=== PATIENT | male | born 1955 | race Caucasian/White ===

== ENCOUNTER 2017-03-04 03:14 | Observation (INO) | payer OTHER ==
[2017-03-04] MEDS ORDERED: BABY ASPIRIN 81 MG CHEW PO ONE (03:20)
[2017-03-04] MEDS ORDERED: Ntg 0.2MG/Ml in D5W GLASS*** 250 ML IV PRN (03:20)
[2017-03-04] MEDS ORDERED: SUBLIMAZE 100 MCG/2 ML IV ONE ×2 (03:20→05:22)
[2017-03-04] MEDS ORDERED: BABY ASPIRIN 81 MG CHEW ONE (03:23)
[2017-03-04] MEDS ORDERED: SUBLIMAZE 100 MCG/2 ML ONE ×2 (03:24→05:24)
[2017-03-04 03:29] LABS: BASOPHIL % 0.2 % (0.0-0.4); Eosinophil % 5.6 % (0.00-5.0); Granulocytes % 47.1 % (36.0-66.0); Lymphocytes % 38.2 % (24.0-44.0); Mean Cell Volume 92.7 fl (78-100); Mean Corpuscular Hemoglobin 31.2 pg (26-32); Mean Platelet Volume 10.5 fl (6-9.5); Monocytes % 8.9 % (0.0-12.0); Platelet Count 222 K/mm3 (150-450); Red Blood Count 4.93 M/mm3 (4.1-5.6); Red Cell Distribution Width 13.8 % (11.5-14.0)
[2017-03-04] MEDS ORDERED: Sodium Chloride 0.9% 1000 ML 1,000 ML IV SCH (03:30)
[2017-03-04 03:41] LABS: INR 0.94 (0.8-3.0); PROTIME 10.5 SECONDS (8.83-12.87)
[2017-03-04 03:44] LABS: PTT 32.6 SECONDS (24.1-36.1)
[2017-03-04 03:56] LABS: ALBUMIN 3.6 g/dL (3.4-5.0); ALKALINE PHOSPHATASE 142 U/L (46-116); ANION GAP 13.2 MEQ/L (5-15); BLOOD UREA NITROGEN 14 mg/dL (9-20); CHLORIDE 108 mEq/L (98-107); Carbon Dioxide 26.6 mEq/L (21-32); Glucose 114 MG/DL (70-110); SGOT/AST 12 U/L (15-37); SGPT/ALT 22 U/L (12-78); SODIUM 144 mEq/L (136-145); Total Protein 7.3 gm/dL (6.4-8.2)
--- NOTE | 2017-03-04 04:07 | ERPHSYRPT ---
- History of Present Illness Time Seen by Provider: 03/04/17 03:20 Historian: patient, family () Patient Subjective Stated Complaint: PT STATES APPROX MIDNIGHT THIS NIGHT HE WOKE UP FROM SLEEP WITH STABBING CHEST PAIN THAT WENT THROUGH TO HIS BACK AND UP HIS LEFT JAW. STATES HE TOOK 2 NITRO WITH NO RELIEF. PT C/O OF SHORTNESS OF BREATH AT THE TIME OF FIRST PAINS BUT BREATHING EASIER NOW. Triage Nursing Assessment: PT IS AOX3, AMBULATORY TO COT WITH NO DIFFICULTIES, RESPS ARE EASY AND NON LABORED, RADIAL PULSES ARE STRONG AND EQUAL. HEART SOUNDS REGULAR, CAP REFILL <3 SECONDS. NO EDEMA APPRECIATED. Physician History: CC: chest pain hx: 61 [facility] patient with hx of DM, heart disease, and prior stroke. He awoke around MN with chest pain to his jaw. He took 2 NTG with mild relief. Not short of breath. Prior [place]. He has been seeing urology for hematuria. Pain sharp and severe. Timing/Duration: today ([place]) Nitro Today/Relief: 0.4 mg x 2, provided at home Aspirin Treatment Today: 81 mg x 4, provided by ED Allergies/Adverse Reactions: STEROIDS Allergy (Mild, Uncoded 03/04/17 03:42) Home Medications: Clopidogrel Bisulfate 75 mg [PLAVIX 75 MG Tablet] 1 tab PO DAILY 11/06/15 [History] Hydrocodone/Acetaminophen [Vicodin Es 7.5-300 mg Tablet] 1 tab PO Q8HPRN PRN [History] Lisinopril 10 mg [Zestril 10 MG] 1 tab PO BID 11/06/15 [History] Metformin HCl 500 mg [Glucophage 500 MG] 1 tab PO DAILY 11/06/15 [History] Metoprolol Tartrate 1 tab PO BID 11/06/15 [History] PANTOPRAZOLE 40 mg Tablet [Protonix 40MG Tablet] 1 tab PO DAILY 11/06/15 [ History] Aspirin 81 gm Chew [Baby Aspirin 81 mg Chew] 81 mg PO DAILY 03/04/17 [ History] Atorvastatin Calcium [Lipitor] 40 mg PO DAILY 03/04/17 [History] Hx Tetanus, Diphtheria Vaccination/Date Given: Yes Hx Influenza Vaccination/Date Given: No Hx Pneumococcal Vaccination/Date Given: No Immunizations Up to Date: Yes - Review of Systems Constitutional: No Fever, No Chills Eyes: No Symptoms Ears, Nose, & Throat: No Symptoms Respiratory: No Cough, No Dyspnea Cardiac: Chest Pain, No Edema, No Syncope Abdominal/Gastrointestinal: No Abdominal Pain, No Nausea, No Vomiting, No Diarrhea Genitourinary Symptoms: No Dysuria Skin: No Rash Neurological: No Headache All Other Systems: Reviewed and Negative - Past Medical History Pertinent Past Medical History: Yes Neurological History: Stroke Cardiac History: Hypertension, Myocardial Infarction ([place]) Endocrine Medical History: Diabetes Type II Musculoskeletal History: Arthritis 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 - Past Surgical History Past Surgical History: Yes Cardiac: Cardiac Stent - Social History Smoking Status: Current every day smoker How long have you smoked: YRS Exposure to second hand smoke: Yes Drug Use: none Patient Lives Alone: No ( here with ) - Nursing Vital Signs Nursing Vital Signs: Initial Vital Signs Temperature 98.3 F 03/04/17 03:24 Pulse Rate 91 H 03/04/17 03:24 Respiratory Rate 20 03/04/17 03:24 Blood Pressure 136/91 03/04/17 03:24 O2 Sat by Pulse Oximetry 95 03/04/17 03:24 Pain Scale Pain Intensity 6 - Physical Exam General Appearance: alert Eye Exam: PERRL/EOMI Ears, Nose, Throat Exam: normal ENT inspection, moist mucous membranes Neck Exam: normal inspection, non-tender, supple Respiratory Exam: normal breath sounds, lungs clear Cardiovascular Exam: regular rate/rhythm, No murmur Gastrointestinal/Abdomen Exam: soft, No tenderness, No distention, No mass, No guarding Male Genitalia Exam: normal genitalia Back Exam: normal inspection Extremity Exam: normal inspection, normal range of motion Neurologic Exam: alert, oriented x 3, cooperative, sensation nml, No motor deficits Skin Exam: warm, dry, pale, No rash SpO2 Interpretation: normal SpO2: 93 Oxygen Delivery: Room Air - Course Nursing assessment & vital signs reviewed: Yes EKG Interpreted by Me: RATE (96), Sinus Rhythm, NORMAL AXIS, NORMAL INTERVALS ( QTc 428), Non-specific ST Changes, Other (minimal inferior ST changes present on prior tracing) - Radiology Exams cxr X-ray Interpretation: Reviewed by me, Negative (mild CM) Ordered Tests: Active Orders 24 hr Category Date Time Status Clean Catch Urine Specimen STAT Care 03/04/17 04:01 Active EKG-ER Only STAT Care 03/04/17 03:20 Active EKG-ER Only STAT Care 03/04/17 03:22 Active EKG-ER Only STAT Care 03/04/17 04:16 Active IV Insertion STAT Care 03/04/17 03:20 Active IV Insertion-2nd Peripheral STAT Care 03/04/17 03:21 Active Oxygen-ED Only NASAL CANNULA 2 lpm Care 03/04/17 04:17 Active Pulse Oximetry (ED) STAT Care 03/04/17 03:20 Active CHEST 1 VIEW (PORTABLE) Stat Exams 03/04/17 03:20 Taken CBC W DIFF Stat Lab 03/04/17 03:24 Completed CMP Stat Lab 03/04/17 03:24 Completed NT PRO BNP Stat Lab 03/04/17 03:24 Completed PROTIME WITH INR Stat Lab 03/04/17 03:24 Completed PTT Stat Lab 03/04/17 03:24 Completed TROPONIN Q3H Lab 03/04/17 03:24 Completed TROPONIN Q3H Lab 03/04/17 06:30 Ordered TROPONIN Q3H Lab 03/04/17 09:30 Ordered TROPONIN Q3H Lab 03/04/17 12:30 Ordered TROPONIN Q3H Lab 03/04/17 15:30 Ordered UA W/ MICROSCOPIC Stat Lab 03/04/17 04:01 Completed Medication Summary Generic Name Dose Route Start Last Admin Trade Name Freq PRN Reason Stop Dose Admin Nitroglycerin/Dextrose 250 mls @ 1.5 mls/hr 03/04/17 03:20 Ntg 0.2mg/Ml In D5w Glass IV 04/03/17 03:19 .Q24H PRN CHEST PAIN Protocol 5 MCG/MIN Sodium Chloride 1,000 mls @ 50 mls/hr 03/04/17 03:30 03/04/17 03:32 Sodium Chloride 0.9% 1000 Ml IV 04/03/17 03:29 50 mls/hr .Q20H ADI Administration Discontinued Medications Generic Name Dose Route Start Last Admin Trade Name Freq PRN Reason Stop Dose Admin Aspirin 324 mg 03/04/17 03:20 03/04/17 03:32 Baby Aspirin 81 Mg Chew PO 03/04/17 03:21 324 mg STAT ONE Administration Aspirin Confirm 03/04/17 03:23 Baby Aspirin 81 Mg Chew Administered 03/04/17 03:24 Dose 324 mg .ROUTE .STK-MED ONE Fentanyl Citrate 50 mcg 03/04/17 03:20 03/04/17 03:32 Sublimaze 100 Mcg/2 Ml IV 03/04/17 03:21 50 mcg STAT ONE Administration Fentanyl Citrate Confirm 03/04/17 03:24 Sublimaze 100 Mcg/2 Ml Administered 03/04/17 03:25 Dose 100 mcg .ROUTE .STK-MED ONE Lab/Rad Data: Laboratory Result Diagrams 03/04/17 03:24 03/04/17 03:24 Laboratory Results 03/04/17 03/04/17 03/04/17 Range/Units 04:01 03:24 03:24 WBC (4.0-10.5) K/mm3 RBC (4.1-5.6) M/mm3 Hgb (12.5-18.0) gm/dl Hct (42-50) % MCV (78-100) fl MCH (26-32) pg MCHC (32-36) g/dl RDW (11.5-14.0) % Plt Count (150-450) K/mm3 MPV (6-9.5) fl Gran % (36.0-66.0) % Lymphocytes % (24.0-44.0) % Monocytes % (0.0-12.0) % Eosinophils % (0.00-5.0) % Basophils % (0.0-0.4) % Basophils # (0-0.4) INR 0.94 (0.8-3.0) APTT 32.6 (24.1-36.1) SECONDS Sodium (136-145) mEq/L Potassium (3.5-5.1) mEq/L Chloride (98-107) mEq/L Carbon Dioxide (21-32) mEq/L Anion Gap (5-15) MEQ/L BUN (9-20) mg/dL Creatinine (0.55-1.30) mg/dl Estimated GFR ML/MIN Glucose (70-110) MG/DL Calcium (8.5-10.1) mg/dL Total Bilirubin (0.2-1.0) mg/dL AST (15-37) U/L ALT (12-78) U/L Alkaline Phosphatase (46-116) U/L Troponin I < 0.017 (0.000-0.056) ng/ml NT-Pro-B Natriuret Pep (0-125) pg/ml Serum Total Protein (6.4-8.2) gm/dL Albumin (3.4-5.0) g/dL Ur Collection Type CLEAN CATCH Urine Color YELLOW (YELLOW) Urine Appearance CLEAR (CLEAR) Urine pH 5.0 (5-6) Ur Specific [place] 1.020 (1.005-1.025) Urine Protein NEGATIVE (Negative) Urine Ketones NEGATIVE (NEGATIVE) Urine Blood 50 (0-5) Manny/ul Urine Nitrite NEGATIVE (NEGATIVE) Urine Bilirubin NEGATIVE (NEGATIVE) Urine Urobilinogen NORMAL (0-1) mg/dL Ur Leukocyte Esterase NEGATIVE (NEGATIVE) Urine Microscopic RBC 0-2 (0-2) /HPF Ur Epithelial Cells FEW (FEW) /HPF Urine Glucose NEGATIVE (NEGATIVE) mg/dL Specimen Received 03/04/17:0400 03/04/17 03/04/17 Range/Units 03:24 03:24 WBC 9.0 (4.0-10.5) K/mm3 RBC 4.93 (4.1-5.6) M/mm3 Hgb 15.4 (12.5-18.0) gm/dl Hct 45.7 (42-50) % MCV 92.7 (78-100) fl MCH 31.2 (26-32) pg MCHC 33.7 (32-36) g/dl RDW 13.8 (11.5-14.0) % Plt Count 222 (150-450) K/mm3 MPV 10.5 H (6-9.5) fl Gran % 47.1 (36.0-66.0) % Lymphocytes % 38.2 (24.0-44.0) % Monocytes % 8.9 (0.0-12.0) % Eosinophils % 5.6 H (0.00-5.0) % Basophils % 0.2 (0.0-0.4) % Basophils # 0.02 (0-0.4) INR (0.8-3.0) APTT (24.1-36.1) SECONDS Sodium 144 (136-145) mEq/L Potassium 4.0 (3.5-5.1) mEq/L Chloride 108 H (98-107) mEq/L Carbon Dioxide 26.6 (21-32) mEq/L Anion Gap 13.2 (5-15) MEQ/L BUN 14 (9-20) mg/dL Creatinine 1.07 (0.55-1.30) mg/dl Estimated GFR > 60 ML/MIN Glucose 114 H (70-110) MG/DL Calcium 8.7 (8.5-10.1) mg/dL Total Bilirubin 0.20 (0.2-1.0) mg/dL AST 12 L (15-37) U/L ALT 22 (12-78) U/L Alkaline Phosphatase 142 H (46-116) U/L Troponin I (0.000-0.056) ng/ml NT-Pro-B Natriuret Pep 35 (0-125) pg/ml Serum Total Protein 7.3 (6.4-8.2) gm/dL Albumin 3.6 (3.4-5.0) g/dL Ur Collection Type Urine Color (YELLOW) Urine Appearance (CLEAR) Urine pH (5-6) Ur Specific [place] (1.005-1.025) Urine Protein (Negative) Urine Ketones (NEGATIVE) Urine Blood (0-5) Manny/ul Urine Nitrite (NEGATIVE) Urine Bilirubin (NEGATIVE) Urine Urobilinogen (0-1) mg/dL Ur Leukocyte Esterase (NEGATIVE) Urine Microscopic RBC (0-2) /HPF Ur Epithelial Cells (FEW) /HPF Urine Glucose (NEGATIVE) mg/dL Specimen Received - Progress Progress Note: 03/04/17 04:06 ASA and fentanyl given. IV NTG started. Pain improving. BP adequate but low side. 03/04/17 05:03 Pain down to 2/10. He is on 50 andrey IV NTG gtt. Called [facility] and spoke to [employer] Specialist Jamie. No PCU beds at [facility] so Dr Angelito Mendenhall gave approval for care in [place] or [place]. Patient has seen Dr Lindsay in the past. Called Dr Ajay Smith for [facility] and he advised admit at [place]. CAlled Dr Tejada (oc) and will admit to ICU on NTG gtt. UA neg for blood so will give lovenox as well. Explained rule out [place] protocol to pt and family. Counseled pt/family regarding: lab results, diagnosis, need for follow-up, rad results - Departure Time of Disposition: 05:05 Departure Disposition: Observation (CCU) Clinical Impression: Chest pain, rule out acute myocardial infarction, Unstable angina Condition: Fair Critical Care Time: Yes Critical Care Time(excluding separately billable procedures): 30-74 minutes Referrals: HOSPITAL,'S [Primary Care Provider] -
[2017-03-04 04:18] LABS: ADD URINE CULTURE? NO (NO); Bilirubin NEGATIVE (NEGATIVE); Blood 50 Ery/ul (0-5); COMPLETE URINE MICROSCOPIC? YES; Collection Type CLEAN CATCH; Glucose NEGATIVE (NEGATIVE); Leukocyte Esterase NEGATIVE (NEGATIVE)
[2017-03-04 04:19] LABS: Epithelial Cells FEW /HPF (FEW)
[2017-03-04] MEDS ORDERED: Pepcid 20 MG VIAL IV ONE ×2 (05:08→05:13)
[2017-03-04] MEDS ORDERED: ENOXAPARIN SODIUM SQ SCH (05:15)
[2017-03-04] MEDS ORDERED: TYLENOL 325 MG PO PRN (06:52)
[2017-03-04] MEDS ORDERED: Zofran 4 MG/2 ML VIAL IV PRN (06:52)
[2017-03-04] MEDS ORDERED: MAALOX ES 30 ML UNIT DOSE PO PRN (06:52)
[2017-03-04] MEDS ORDERED: NovoLOG Insulin SQ PRN (06:52)
[2017-03-04] MEDS ORDERED: Senokot-S Tablet PO PRN (06:52)
[2017-03-04] MEDS ORDERED: MILK OF MAGNESIA 30 ML PO PRN (06:52)
[2017-03-04] MEDS ORDERED: MORPHINE SULFATE 4 MG INJ IV ONE (08:04)
[2017-03-04] MEDS ORDERED: MORPHINE SULFATE 4 MG INJ IV PRN (08:15)
[2017-03-04] MEDS ORDERED: LOPRESSOR 5 MG/5 ML INJECTION IV ONE (08:16)
[2017-03-04 08:27] VITALS: BP 111/84; O2SAT 94
[2017-03-04 08:49] VITALS: PULSE 90
--- NOTE | 2017-03-04 08:56 | XRAY ---
Indication: Chest pain. Comparison: November 06, 2015. Portable chest less inflated today and again clear with a few incidental calcified granulomas. Heart is not enlarged. Bony thorax intact again with mild degenerative changes and old right clavicle fracture. Impression: Nonacute chest with chronic features.
--- NOTE | 2017-03-04 10:33 | HP ---
HISTORY OF PRESENT ILLNESS: This is a 61 year-old patient of the PA who presented to the emergency department last night. The patient reports that he started to have sternal chest pain that radiated up into his jaw mostly in the left side, back of his throat and through to his back. He went to bed at 2200 hours last night and the chest pain started at midnight. He waited until 0300 hours and then woke up his and told her he needed to come to the emergency department. He tried [id number] medications for acid reflux without help. He reports coronary artery disease with myocardial infarction five [address] Lindsay put a stent in for him. He reports an episode of chest pain one year ago which he got sent to the [facility] for and he sees a [place] health and safety inspector every year. He reports he had a stress test last year but was not sure of the results. The patient reports an episode a year ago. He had to be on a morphine drip. He states the pain is in his sternum up to his neck and to his back more on the left side of his neck, back of his throat. He states it hurts to draw in a breath of air. He denies any nausea or vomiting with it. He reports the Nitro drip is not helping with the pain but the pain medicine they gave in the emergency room did help. The nurses report the emergency room doctor did not order any further pain medication for him when they admitted him even though that is usually on the chest pain pathway. REVIEW OF SYSTEMS: No cough. No fever. No abdominal pain. No constipation. No diarrhea. Otherwise review of systems is negative. 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 PAST SURGICAL HISTORY: Stent placement has been his only surgery. MEDICATIONS: Aspirin 81 mg p.o. daily, atorvastatin 40 mg p.o. daily, Plavix 75 mg p.o. daily, Vicodin 7.5/300 one tablet p.o. every 8 hours PRN for arthritis, lisinopril 10 mg p.o. b.i.d., Metformin 500 mg daily, Metoprolol tartrate unknown dose 1 tablet p.o. b.i.d., pantoprazole 40 mg p.o. daily. ALLERGIES: STEROIDS. SOCIAL HISTORY: He continues to smoke one pack per day. He occasionally uses alcohol. He denies any history of alcohol withdrawal. He is disabled. 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 He is and lives at home with this . FAMILY HISTORY: His father is and from respiratory failure but also did have coronary artery disease. His mother from old age. PHYSICAL EXAMINATION: VITAL SIGNS: Temperature current 98.1F, temperature max 98.3F, heart rate 89 to 99, respiratory rate 19 to 20, blood pressure 98 to 136 over 60 to 91. Oxygen saturation 93 to 97% on room air with 2 liters nasal cannula. GENERAL: The patient is lying in bed complaining of chest pain. Family members at the bedside. CVS: He has a regular rate and rhythm. No murmurs, gallops or rubs are appreciated. CHEST: Clear to auscultation bilaterally. No crackles or wheezes. ABDOMEN: Soft, nontender, nondistended with normal bowel sounds. EXTREMITIES: No clubbing, cyanosis or edema. SKIN: Warm, dry and intact. LABORATORY DATA AND TESTS: He has had two negative troponins. CBC within normal limits. CMP revealed glucose 114, alkaline phosphatase 142. UA negative. Chest x-ray has not been read by the radiologist yet. EKG this a.m. is sinus rhythm with heart rate of 85 with T-wave flattening in aVL and lead III. ASSESSMENT AND PLAN: 1) CHEST PAIN WITH HISTORY OF CORONARY ARTERY DISEASE: Dr. Taylor consulted Dr. Haven Hudson from the emergency room who recommended that he be admitted here and Dr. Lindsay consulted in the morning. He was started on Nitro drip in the emergency room and according to Dr. Taylor also received a dose of Lovenox. The patient continues to have chest pain. I have ordered morphine as needed for pain. He is on oxygen. I have reordered aspirin and Plavix as well. I have ordered metoprolol 5 mg IV x1 to try to slow down his heart rate. I will await further cardiology consultation. I am also going to check a D-dimer to rule out pulmonary embolism. He received anticoagulation dose of Lovenox. 2) HYPERTENSION: His blood pressure is currently under control. 3) HISTORY OF STROKE: He is stable. 4) DIABETES MELLITUS TYPE 2: Will continue with a low dose sliding scale of NovoLog and hold the Metformin at this time.
[2017-03-04] MEDS ORDERED: Pepcid 20 MG VIAL IV SCH (22:00)
[2017-03-05] MEDS ORDERED: Ecotrin 325 MG PO SCH (10:00)
== END 2017-03-04 11:05 | disposition short-term general hospital (02) ==
LOC: ED 03:14 → ICU 06:16
PROVIDERS: ADMIT Internal Medicine; ATTEND Internal Medicine
DX: R07.9 Chest pain, unspecified (principal); I10 Essential (primary) hypertension; E11.9 Type 2 diabetes mellitus without complications; I25.2 Old myocardial infarction; Z86.79 Personal history of other diseases of the circulatory system; Z86.73 Personal history of transient ischemic attack (TIA), and cerebral infarction without residual deficits
CPT/HCPCS: 36000; 36415; 71010; 80053; 80061; 81000; 82150; 83690; 83721; 83880; 84484; 85025; 85379; 85610; 85730; 93005; 96360; 96361; 96374; 99285; G0378; J1650; J2270; J3010; A9270-GY

== ENCOUNTER 2021-01-16 17:46 | Emergency (ER) | payer OTHER ==
[2021-01-16 18:18] LABS: Absolute Neutrophil Ct (ANC) 3.41 (1.4-6.9); BASOPHIL % 0.3 % (0.0-0.4); Basophil (Absolute #) 0.02 (0-0.4); Eosinophil % 2.7 % (0.00-5.0); Eosinophil (Absolute #) 0.21 (0-0.5); Hematocrit 46.5 % (42-50); Hemoglobin 15.3 gm/dl (12.5-18.0); Lymphocyte (Absolute #) 3.31 (1.0-4.6); Mean Cell Volume 96.1 fl (78-100); Mean Corpuscular Hemoglobin 31.6 pg (26-32); Mean Corpuscular Hgb Concent. 32.9 g/dl (32-36); Monocyte (Absolute #) 0.75 (0.0-1.3); Monocytes % 9.7 % (0.0-12.0); Neutrophil % 44.3 % (36.0-66.0); Platelet Count 207 K/mm3 (150-450); Red Blood Count 4.84 M/mm3 (4.1-5.6); Red Cell Distribution Width 13.6 % (11.5-14.0); White Blood Count 7.7 K/mm3 (4.0-10.5)
[2021-01-16 18:24] LABS: ALBUMIN 4.4 g/dL (3.5-5.0); ALKALINE PHOSPHATASE 163 U/L (38-126); ANION GAP 15.5 MEQ/L (5-15); BLOOD UREA NITROGEN 14 mg/dL (9-20); CHLORIDE 102 mmol/L (98-107); Calcium 9.4 mg/dL (8.4-10.2); Carbon Dioxide 24 mmol/L (22-30); EST GLOMERULAR FILTRATION RATE > 60.0 ML/MIN; Glucose 134 mg/dL (74-106); Potassium 3.7 mmol/L (3.5-5.1); SGOT/AST 33 U/L (17-59); SGPT/ALT 26 U/L (0-50); SODIUM 138 mmol/L (137-145); Total Protein 7.7 g/dL (6.3-8.2)
--- NOTE | 2021-01-16 19:03 | ERPHSYRPT ---
- History of Present Illness Time Seen by Provider: 01/16/21 18:00 Source: patient Patient Subjective Stated Complaint: BP CUFF AT HOME READS OVER 200. TOOK 81 MG ASA. DIZZINESS, HEADACHE. WANTS BP CHECKED TO SEE IF MONITOR IS WORKING. Triage Nursing Assessment: ALERT AND ORIENTED. SKIN FLUSHED, WARM, DRY. Physician History: Patient is a 65-year-old male presents to emergency department for evaluation of blood pressure. Patient checked his blood pressure at home. Blood pressure was elevated. Patient states systolic was greater than 200. Patient took aspirin at home prior to arrival. He feels slightly dizzy. No other complaints. No c hest pain. No shortness of breath. No nausea vomiting or diaphoresis. Symptoms are mild in intensity. No specific worsening or improving factors. Patient voices no other complaints or concerns at this time. Timing/Duration: today Severity: mild Modifying Factors: Improves With: nothing Associated Symptoms: denies symptoms Allergies/Adverse Reactions: STEROIDS Allergy (Mild, Uncoded 03/04/17 06:56) Home Medications: Clopidogrel Bisulfate 75 mg [PLAVIX 75 MG Tablet] 1 tab PO DAILY 11/06/15 [History] Hydrocodone/Acetaminophen [Vicodin Es 7.5-300 mg Tablet] 1 tab PO Q8HPRN PRN 11/06/15 [History] Lisinopril 10 mg [Zestril 10 MG] 1 tab PO BID 11/06/15 [History] Metformin HCl 500 mg [Glucophage 500 MG] 1 tab PO DAILY 11/06/15 [History] Metoprolol Tartrate 1 tab PO BID 11/06/15 [History] PANTOPRAZOLE 40 mg Tablet [Protonix 40MG Tablet] 1 tab PO DAILY 11/06/15 [History] Aspirin 81 gm Chew [Baby Aspirin 81 mg Chew] 81 mg PO DAILY 03/04/17 [History] Atorvastatin Calcium [Lipitor] 40 mg PO DAILY 03/04/17 [History] Hx Tetanus, Diphtheria Vaccination/Date Given: Yes Hx Influenza Vaccination/Date Given: No Hx Pneumococcal Vaccination/Date Given: No Travel Risk - International Travel Have you traveled outside of the country in past 3 weeks: No - Coronavirus Screening Are you exhibiting any of the following symptoms?: No Close contact with a COVID-19 positive Pt in past 14-21 Days: No - Vaccine Status Have you recieved a Covid-19 vaccination: Yes 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 - Vaccination Dates Date of 2cond Vaccination (if applicable): 11/05/20 - Review of Systems Constitutional: No Symptoms, No Fever, No Chills Eyes: No Symptoms Ears, Nose, & Throat: No Symptoms Respiratory: No Symptoms, No Cough, No Dyspnea Cardiac: No Symptoms, No Chest Pain, No Edema, No Syncope Abdominal/Gastrointestinal: No Symptoms, No Abdominal Pain, No Nausea, No Vomiting, No Diarrhea Genitourinary Symptoms: No Symptoms, No Dysuria Musculoskeletal: No Symptoms, No Back Pain, No Neck Pain Skin: No Symptoms, No Rash Neurological: No Symptoms, No Dizziness, No Focal Weakness, No Sensory Changes Psychological: No Symptoms Endocrine: No Symptoms Hematologic/Lymphatic: No Symptoms Immunological/Allergic: No Symptoms All Other Systems: Reviewed and Negative - Past Medical History Pertinent Past Medical History: Yes Neurological History: Stroke Cardiac History: Angina, Coronary Artery Disease, High Cholesterol, Hypertension, Myocardial Infarction ([place]) Respiratory History: No Pertinent History, Sleep Apnea Endocrine Medical History: Diabetes Type II Musculoskeletal History: Arthritis GI Medical History: GERD History: No Pertinent History Psycho-Social History: No Pertinent History Male Reproductive Disorders: No Pertinent History 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 - Social History Smoking Status: Current every day smoker How long have you smoked: YRS Exposure to second hand smoke: Yes Drug Use: none Patient Lives Alone: No ( here with ) - Nursing Vital Signs Nursing Vital Signs: Initial Vital Signs Temperature 98.0 F 01/16/21 17:57 Pulse Rate 97 H 01/16/21 17:57 Respiratory Rate 20 01/16/21 17:57 Blood Pressure 222/131 01/16/21 17:57 O2 Sat by Pulse Oximetry 98 01/16/21 17:57 Pain Scale Pain Intensity 0 - Physical Exam General Appearance: no apparent distress, alert Eye Exam: PERRL/EOMI, eyes nml inspection Ears, Nose, Throat Exam: normal ENT inspection, TMs normal, pharynx normal, moist mucous membranes Neck Exam: normal inspection, non-tender, supple, full range of motion Respiratory Exam: normal breath sounds, lungs clear, No respiratory distress Cardiovascular Exam: regular rate/rhythm, normal heart sounds, normal peripheral pulses Gastrointestinal/Abdomen Exam: soft, normal bowel sounds, No tenderness, No mass Back Exam: normal inspection, normal range of motion, No CVA tenderness, No vertebral tenderness Extremity Exam: normal inspection, normal range of motion, pelvis stable Neurologic Exam: alert, oriented x 3, cooperative, normal mood/affect, sensation nml, No motor deficits Skin Exam: normal color, warm, dry, No rash Lymphatic Exam: No adenopathy SpO2 Interpretation: normal SpO2: 97 O2 Delivery: Room Air - Course Nursing assessment & vital signs reviewed: Yes EKG Interpreted by Me: RATE (95), Sinus Rhythm, NORMAL AXIS, NORMAL INTERVALS - Radiology Exams Chest X-ray Interpretation: Interpreted by me (2. Previous x-ray dated 03/04/2017. Normal cardiac silhouette. Intact bony thorax. No acute cardiopulmonary process old right clavicle fracture. Nonacute chest with chronic features) Ordered Tests: Active Orders 24 hr Category Date Time Status [employer]orer STAT Care 01/16/21 18:11 Active EKG-ER Only STAT Care 01/16/21 18:09 Active IV Insertion STAT Care 01/16/21 18:09 Active Pulse Oximetry (ED) STAT Care 01/16/21 18:09 Active CHEST 1 VIEW (PORTABLE) Stat Exams 01/16/21 18:11 Taken CBC W DIFF Stat Lab 01/16/21 18:00 Completed CMP Stat Lab 01/16/21 18:00 Completed TROPONIN Q3H Lab 01/16/21 18:00 Completed TROPONIN Q3H Lab 01/16/21 20:29 Completed TROPONIN Q3H Lab 01/17/21 00:15 Ordered TROPONIN Q3H Lab 01/17/21 03:15 Ordered TROPONIN Q3H Lab 01/17/21 06:15 Ordered UA W/RFX UR CULTURE Stat Lab 01/16/21 18:33 Completed Medication Summary Discontinued Medications Generic Name Dose Route Start Last Admin Trade Name Freq PRN Reason Stop Dose Admin Amlodipine Besylate 5 mg 01/16/21 20:35 01/16/21 20:58 Norvasc 5 Mg PO 01/16/21 20:36 5 mg STAT ONE Administration Amlodipine Besylate Confirm 01/16/21 20:57 Norvasc 5 Mg Administered 01/16/21 20:58 Dose 5 mg .ROUTE .STK-MED ONE Lab/Rad Data: Laboratory Result Diagrams 01/16/21 18:00 01/16/21 18:00 Laboratory Results 01/16/21 01/16/21 01/16/21 Range/Units 20:29 18:33 18:00 WBC (4.0-10.5) K/mm3 RBC (4.1-5.6) M/mm3 Hgb (12.5-18.0) gm/dl Hct (42-50) % MCV (78-100) fl MCH (26-32) pg MCHC (32-36) g/dl RDW (11.5-14.0) % Plt Count (150-450) K/mm3 MPV (7.5-11.0) fl Gran % (36.0-66.0) % Eos # (Auto) (0-0.5) Absolute Lymphs (auto) (1.0-4.6) Absolute Monos (auto) (0.0-1.3) Lymphocytes % (24.0-44.0) % Monocytes % (0.0-12.0) % Eosinophils % (0.00-5.0) % Basophils % (0.0-0.4) % Absolute Granulocytes (1.4-6.9) Basophils # (0-0.4) Sodium (137-145) mmol/L Potassium (3.5-5.1) mmol/L Chloride (98-107) mmol/L Carbon Dioxide (22-30) mmol/L Anion Gap (5-15) MEQ/L BUN (9-20) mg/dL Creatinine (0.66-1.25) mg/dL Estimated GFR ML/MIN Glucose (74-106) mg/dL Calcium (8.4-10.2) mg/dL Total Bilirubin (0.2-1.3) mg/dL AST (17-59) U/L ALT (0-50) U/L Alkaline Phosphatase (38-126) U/L Troponin I < 0.012 < 0.012 (0.000-0.034) ng/mL Serum Total Protein (6.3-8.2) g/dL Albumin (3.5-5.0) g/dL Urine Color YELLOW (YELLOW) Urine Appearance CLEAR (CLEAR) Urine pH 6.0 (5-6) Ur Specific [place] 1.013 (1.005-1.025) Urine Protein NEGATIVE (Negative) Urine Ketones NEGATIVE (NEGATIVE) Urine Blood NEGATIVE (0-5) Manny/ul Urine Nitrite NEGATIVE (NEGATIVE) Urine Bilirubin NEGATIVE (NEGATIVE) Urine Urobilinogen 2 (0-1) mg/dL Ur Leukocyte Esterase NEGATIVE (NEGATIVE) Urine WBC (Auto) 0-2 (0-5) /HPF Urine RBC (Auto) NONE (0-2) /HPF U Epithel Cells (Auto) NONE (FEW) /HPF Urine Bacteria (Auto) NONE (NEGATIVE) /HPF Urine Mucus (Auto) SLIGHT (NEGATIVE) /HPF Urine Culture Reflexed NO (NO) Urine Glucose NEGATIVE (NEGATIVE) mg/dL 01/16/21 01/16/21 Range/Units 18:00 18:00 WBC 7.7 (4.0-10.5) K/mm3 RBC 4.84 (4.1-5.6) M/mm3 Hgb 15.3 (12.5-18.0) gm/dl Hct 46.5 (42-50) % MCV 96.1 (78-100) fl MCH 31.6 (26-32) pg MCHC 32.9 (32-36) g/dl RDW 13.6 (11.5-14.0) % Plt Count 207 (150-450) K/mm3 MPV 11.0 (7.5-11.0) fl Gran % 44.3 (36.0-66.0) % Eos # (Auto) 0.21 (0-0.5) Absolute Lymphs (auto) 3.31 (1.0-4.6) Absolute Monos (auto) 0.75 (0.0-1.3) Lymphocytes % 43.0 (24.0-44.0) % Monocytes % 9.7 (0.0-12.0) % Eosinophils % 2.7 (0.00-5.0) % Basophils % 0.3 (0.0-0.4) % Absolute Granulocytes 3.41 (1.4-6.9) Basophils # 0.02 (0-0.4) Sodium 138 (137-145) mmol/L Potassium 3.7 (3.5-5.1) mmol/L Chloride 102 (98-107) mmol/L Carbon Dioxide 24 (22-30) mmol/L Anion Gap 15.5 H (5-15) MEQ/L BUN 14 (9-20) mg/dL Creatinine 1.10 (0.66-1.25) mg/dL Estimated GFR > 60.0 ML/MIN Glucose 134 H (74-106) mg/dL Calcium 9.4 (8.4-10.2) mg/dL Total Bilirubin 0.20 (0.2-1.3) mg/dL AST 33 (17-59) U/L ALT 26 (0-50) U/L Alkaline Phosphatase 163 H (38-126) U/L Troponin I (0.000-0.034) ng/mL Serum Total Protein 7.7 (6.3-8.2) g/dL Albumin 4.4 (3.5-5.0) g/dL Urine Color (YELLOW) Urine Appearance (CLEAR) Urine pH (5-6) Ur Specific [place] (1.005-1.025) Urine Protein (Negative) Urine Ketones (NEGATIVE) Urine Blood (0-5) Manny/ul Urine Nitrite (NEGATIVE) Urine Bilirubin (NEGATIVE) Urine Urobilinogen (0-1) mg/dL Ur Leukocyte Esterase (NEGATIVE) Urine WBC (Auto) (0-5) /HPF Urine RBC (Auto) (0-2) /HPF U Epithel Cells (Auto) (FEW) /HPF Urine Bacteria (Auto) (NEGATIVE) /HPF Urine Mucus (Auto) (NEGATIVE) /HPF Urine Culture Reflexed (NO) Urine Glucose (NEGATIVE) mg/dL - Progress Progress: improved Progress Note: Patient reassessed. He is asymptomatic. Troponin negative x2. Chest x-ray essentially unchanged. EKG normal sinus rhythm. Blood pressure was initially significantly elevated. Blood pressure significantly improved. Patient requesting discharge. We attempted to transfer to [place] hospital however they declined. Patient prefers to go home instead. In light of the fact that patient is currently asymptomatic the work-up was essentially nonremarkable at this time. We will discharge patient home. Patient agrees to early follow-up with his primary care doctor at the [facility] within 48 hours for reevaluation. at bedside agrees with plan of care as well. 01/16/21 21:33 Counseled pt/family regarding: lab results, diagnosis, need for follow-up, rad results - Departure Departure Disposition: Home Clinical Impression: Hypertensive urgency Condition: Stable Critical Care Time: No Referrals: DOCTOR,NO FAMILY [Primary Care Provider] - MISTY BURLESON DO [ACTIVE STAFF] - Instructions: Malignant Hypertension ([place]) Additional Instructions: Discharge/Care Plan ROBERTO DASILVA was seen on 01/16/21 in the Emergency Room. The patient was counseled regarding Diagnosis,Lab results, Imaging studies, need for follow up and when to return to the Emergency Room. Prescriptions given: Discharge Note I have spoken with the patient and/or caregivers. I have explained the patient's condition, diagnosis and treatment plan based on the information available to me at this time. I have answered the patient's and/or caregiver's questions and addressed any concerns. The patient and/or caregivers have as good understanding of the patient's diagnosis, condition and treatment plan as can be expected at this point. The vital signs have been stable. The patient's condition is stable and appropriate for discharge from the emergency department. The patient will pursue further outpatient evaluation with the primary care p nate or other designated or consulting physician as outlined in the discharge instructions. The patient and/or caregivers are agreeable to this plan of care and follow-up instructions have been explained in detail. The patient and/or caregivers have received these instruction. The patient/and or caregivers are aware that any significant change in condition or worsening of symptoms should prompt an immediate return to this or the closest emergency department or call 911.
[2021-01-16 19:49] LABS: Appearance CLEAR (CLEAR); Bilirubin NEGATIVE (NEGATIVE); Blood NEGATIVE Ery/ul (0-5); Glucose NEGATIVE (NEGATIVE); Ketones NEGATIVE (NEGATIVE); Leukocyte Esterase NEGATIVE (NEGATIVE); Mucus SLIGHT /HPF (NEGATIVE); Nitrite NEGATIVE (NEGATIVE); Protein,Urine Dip NEGATIVE (Negative); Specific Gravity 1.013 (1.005-1.025); Urobilinogen 2 mg/dL (0-1); WBC 0-2 /HPF (0-5)
[2021-01-16 20:20] VITALS: O2SAT 97
[2021-01-16] MEDS ORDERED: NORVASC 5 MG ONE (20:57)
[2021-01-16] MEDS: NORVASC 5 MG PO ONE (20:58)
[2021-01-16 21:29] VITALS: BP 156/100; PULSE 72
--- NOTE | 2021-01-17 08:46 | XRAY ---
Indication: Chest pain. Comparison: March 04, 2017. Portable chest remains hyperinflated without focal infiltrate, consolidation, or large effusion. Heart not enlarged. Bony thorax intact again with mild osteopenia, degenerative changes, and old right clavicle fracture. Impression: Continued nonacute chest with chronic features.
== END 2021-01-16 21:41 | disposition home or self-care (01) ==
LOC: ED 17:46
DX: I16.0 Hypertensive urgency (principal); R42 Dizziness and giddiness; Z79.899 Other long term (current) drug therapy; Z79.01 Long term (current) use of anticoagulants; I10 Essential (primary) hypertension; E11.9 Type 2 diabetes mellitus without complications
CPT/HCPCS: 36000; 36415; 71045; 80053; 81001; 84484; 85025; 93005; 93041; 94760; 99284; A9270-GY

== ENCOUNTER 2021-03-03 17:48 | Emergency (ER) | payer OTHER ==
[2021-03-03] MEDS ORDERED: VASOTEC I.V. 2.5 MG IV ONE ×2 (18:18→18:26)
--- NOTE | 2021-03-03 18:34 | ERPHSYRPT ---
- History of Present Illness Time Seen by Provider: 03/03/21 18:15 Source: patient Exam Limitations: no limitations Patient Subjective Stated Complaint: pt here for htn since 0400 took hes meds this am, co pain to headache Triage Nursing Assessment: pt alert, resp easy, skin w/d/p. face mask in place Physician History: This is a 65-year-old white male [facility] patient who has a history of diabetes, hypertension, gastroesophageal reflux disease, elevated cholesterol, sleep apnea and has coronary artery disease and his cardiac stents in place and presents to the emergency department with concerns of hypertension. Patient is on Plavix chronically because of the cardiac stents that are in place. Patient complains of left side headache. He usually notices it when his blood pressure is high. His symptoms began yesterday and his systolic blood pressure was high as 235 yesterday. Patient took his evening medication and his morning medications today and the systolic blood pressure improved to around 200-210 but he continues to have the mild left-sided headache. Relatively recently, the patient was placed on a single daily morning long-acting metoprolol and his lisinopril was doubled. He takes both of these medications in the morning. Patient denies shortness of breath. He denies chest pain. Timing/Duration: yesterday Severity: mild (To moderate headache. No other symptoms) Associated Symptoms: headaches (Left side), No shortness of breath, No chest pain Allergies/Adverse Reactions: STEROIDS Allergy (Mild, Uncoded 03/03/21 18:12) Home Medications: Clopidogrel Bisulfate 75 mg [PLAVIX 75 MG Tablet] 1 tab PO DAILY 11/06/15 [History] Lisinopril 10 mg [Zestril 10 MG] 20 tab PO BID 11/06/15 [History] Metformin HCl 500 mg [Glucophage 500 MG] 1 tab PO DAILY 11/06/15 [History] Metoprolol Tartrate 200 tab PO DAILY 11/06/15 [History] PANTOPRAZOLE 40 mg Tablet [Protonix 40MG Tablet] 1 tab PO DAILY 11/06/15 [History] Aspirin 81 gm Chew [Baby Aspirin 81 mg Chew] 81 mg PO DAILY 03/04/17 [History] Atorvastatin Calcium [Lipitor] 40 mg PO DAILY 03/04/17 [History] Hx Tetanus, Diphtheria Vaccination/Date Given: Yes Hx Influenza Vaccination/Date Given: No Hx Pneumococcal Vaccination/Date Given: No Immunizations Up to Date: Yes Travel Risk - International Travel Have you traveled outside of the country in past 3 weeks: No - Coronavirus Screening Are you exhibiting any of the following symptoms?: No Close contact with a COVID-19 positive Pt in past 14-21 Days: No - Vaccine Status Have you recieved a Covid-19 vaccination: Yes Home Health Registered Nurse: Moderna - Vaccination Dates Date of 2cond Vaccination (if applicable): october 2020 - Review of Systems Constitutional: No Symptoms Eyes: No Symptoms Ears, Nose, & Throat: No Symptoms Respiratory: No Symptoms Cardiac: No Symptoms Abdominal/Gastrointestinal: No Symptoms Genitourinary Symptoms: No Symptoms Musculoskeletal: No Symptoms Skin: No Symptoms Neurological: Headache (Left side) Psychological: No Symptoms Endocrine: No Symptoms Hematologic/Lymphatic: No Symptoms Immunological/Allergic: No Symptoms All Other Systems: Reviewed and Negative - Past Medical History Pertinent Past Medical History: Yes Neurological History: Stroke Cardiac History: Angina, Coronary Artery Disease, High Cholesterol, Hypertension, Myocardial Infarction ([place]) Respiratory History: No Pertinent History, Sleep Apnea Endocrine Medical History: Diabetes Type II Musculoskeletal History: Arthritis GI Medical History: GERD History: No Pertinent History Psycho-Social History: No Pertinent History Male Reproductive Disorders: No Pertinent History 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 - Social History Smoking Status: Current every day smoker How long have you smoked: YRS Exposure to second hand smoke: Yes Drug Use: none Patient Lives Alone: No ( here with ) - Nursing Vital Signs Nursing Vital Signs: Initial Vital Signs Temperature 98.7 F 03/03/21 18:02 Pulse Rate 71 03/03/21 18:02 Respiratory Rate 18 03/03/21 18:02 Blood Pressure 209/101 03/03/21 18:02 O2 Sat by Pulse Oximetry 96 03/03/21 18:02 Pain Scale Pain Intensity 0 - Physical Exam General Appearance: no apparent distress, alert, anxiety Eye Exam: PERRL/EOMI, eyes nml inspection Ears, Nose, Throat Exam: normal ENT inspection, moist mucous membranes Neck Exam: normal inspection, non-tender, supple, full range of motion Respiratory Exam: normal breath sounds, lungs clear, airway intact, No chest tenderness, No respiratory distress Cardiovascular Exam: regular rate/rhythm, normal heart sounds, normal peripheral pulses Gastrointestinal/Abdomen Exam: soft, normal bowel sounds, No tenderness Rectal Exam: not done Back Exam: normal inspection, normal range of motion, No CVA tenderness, No vertebral tenderness Extremity Exam: normal inspection, normal range of motion, pelvis stable Neurologic Exam: alert, oriented x 3, cooperative, foot and ankle surgeon II-XII nml as tested, normal mood/affect, nml cerebellar function, nml station & gait, sensation nml Skin Exam: normal color, warm, dry Lymphatic Exam: No adenopathy SpO2 Interpretation: normal SpO2: 98 O2 Delivery: Room Air - Course Nursing assessment & vital signs reviewed: Yes Ordered Tests: Active Orders 24 hr Category Date Time Status [employer] STAT Care 03/03/21 18:17 Active EKG-ER Only STAT Care 03/03/21 18:17 Active IV Insertion STAT Care 03/03/21 18:17 Active Pulse Oximetry (ED) STAT Care 03/03/21 18:17 Active HEAD WITHOUT CONTRAST [CT] Stat Exams 03/03/21 18:52 Completed CBC W DIFF Stat Lab 03/03/21 10:31 Completed CMP Stat Lab 03/03/21 10:31 Completed MAGNESIUM Stat Lab 03/03/21 10:31 Completed NT PRO BNP Stat Lab 03/03/21 10:31 Completed TROPONIN Q3H Lab 03/03/21 10:31 Completed TROPONIN Q3H Lab 03/03/21 21:30 Ordered TROPONIN Q3H Lab 03/04/21 00:30 Ordered TROPONIN Q3H Lab 03/04/21 03:30 Ordered TROPONIN Q3H Lab 03/04/21 06:30 Ordered Medication Summary Discontinued Medications Generic Name Dose Route Start Last Admin Trade Name Freq PRN Reason Stop Dose Admin Clonidine 0.1 mg 03/03/21 19:08 03/03/21 19:13 Catapres 0.1 Mg PO 03/03/21 19:09 0.1 mg STAT ONE Administration Clonidine Confirm 03/03/21 19:12 Catapres 0.1 Mg Administered 03/03/21 19:13 Dose 0.1 mg .ROUTE .STK-MED ONE Clonidine 0.1 mg 03/03/21 19:40 03/03/21 19:55 Catapres 0.1 Mg PO 03/03/21 19:41 0.1 mg STAT ONE Administration Clonidine Confirm 03/03/21 19:54 Catapres 0.1 Mg Administered 03/03/21 19:55 Dose 0.1 mg .ROUTE .STK-MED ONE Enalaprilat 1.25 mg 03/03/21 18:18 03/03/21 18:27 Vasotec I.V. 2.5 Mg IV 03/03/21 18:19 1.25 mg STAT ONE Administration Enalaprilat Confirm 03/03/21 18:26 Vasotec I.V. 2.5 Mg Administered 03/03/21 18:27 Dose 2.5 mg IV .STK-MED ONE Lab/Rad Data: Laboratory Result Diagrams 03/03/21 10:31 03/03/21 10:31 Laboratory Results 03/03/21 03/03/21 03/03/21 Range/Units 10:31 10:31 10:31 WBC 8.1 (4.0-10.5) K/mm3 RBC 4.90 (4.1-5.6) M/mm3 Hgb 15.4 (12.5-18.0) gm/dl Hct 47.1 (42-50) % MCV 96.1 (78-100) fl MCH 31.4 (26-32) pg MCHC 32.7 (32-36) g/dl RDW 13.5 (11.5-14.0) % Plt Count 236 (150-450) K/mm3 MPV 10.5 (7.5-11.0) fl Gran % 55.7 (36.0-66.0) % Eos # (Auto) 0.17 (0-0.5) Absolute Lymphs (auto) 2.67 (1.0-4.6) Absolute Monos (auto) 0.73 (0.0-1.3) Lymphocytes % 33.0 (24.0-44.0) % Monocytes % 9.0 (0.0-12.0) % Eosinophils % 2.1 (0.00-5.0) % Basophils % 0.2 (0.0-0.4) % Absolute Granulocytes 4.49 (1.4-6.9) Basophils # 0.02 (0-0.4) Sodium 138 (137-145) mmol/L Potassium 3.7 (3.5-5.1) mmol/L Chloride 106 (98-107) mmol/L Carbon Dioxide 24 (22-30) mmol/L Anion Gap 11.7 (5-15) MEQ/L BUN 11 (9-20) mg/dL Creatinine 0.86 (0.66-1.25) mg/dL Estimated GFR > 60.0 ML/MIN Glucose 111 H (74-106) mg/dL Calcium 9.2 (8.4-10.2) mg/dL Magnesium 1.8 (1.6-2.3) mg/dL Total Bilirubin 0.60 (0.2-1.3) mg/dL AST 22 (17-59) U/L ALT 18 (0-50) U/L Alkaline Phosphatase 159 H (38-126) U/L Troponin I < 0.012 (0.000-0.034) ng/mL NT-Pro-B Natriuret Pep 147 (0-900) pg/mL Serum Total Protein 7.0 (6.3-8.2) g/dL Albumin 4.0 (3.5-5.0) g/dL - Progress Progress: improved, re-examined Progress Note: 03/03/21 19:38 CAT scan of the head without contrast shows normal aging brain. There is no acute intracranial abnormalities. 03/03/21 20:16 Medical decision making: This patient's symptoms have completely resolved. His systolic blood pressure has improved. He has no chest pain. Patient does not want to be admitted or transferred to a facility. Patient states he is feeling much better. He states he is ready to go home. Counseled pt/family regarding: lab results, diagnosis, need for follow-up, rad results - Departure Departure Disposition: Home Clinical Impression: Hypertensive urgency Condition: Stable Critical Care Time: Yes Critical Care Time(excluding separately billable procedures): Critical 30-74 mins Referrals: HOSPITAL[facility] [Primary Care Provider] - Additional Instructions: Take your medication as prescribed. Monitor your blood pressure and keep a log 3 times a day. Follow-up with your primary care physician for further management. Return to the emergency department if symptoms worsen.
[2021-03-03 18:48] LABS: Absolute Neutrophil Ct (ANC) 4.49 (1.4-6.9); BASOPHIL % 0.2 % (0.0-0.4); Basophil (Absolute #) 0.02 (0-0.4); Eosinophil % 2.1 % (0.00-5.0); Eosinophil (Absolute #) 0.17 (0-0.5); Hematocrit 47.1 % (42-50); Hemoglobin 15.4 gm/dl (12.5-18.0); Lymphocyte (Absolute #) 2.67 (1.0-4.6); Mean Cell Volume 96.1 fl (78-100); Mean Corpuscular Hemoglobin 31.4 pg (26-32); Mean Corpuscular Hgb Concent. 32.7 g/dl (32-36); Mean Platelet Volume 10.5 fl (7.5-11.0); Monocyte (Absolute #) 0.73 (0.0-1.3); Neutrophil % 55.7 % (36.0-66.0); Platelet Count 236 K/mm3 (150-450); Red Cell Distribution Width 13.5 % (11.5-14.0); White Blood Count 8.1 K/mm3 (4.0-10.5)
[2021-03-03 18:59] LABS: ALKALINE PHOSPHATASE 159 U/L (38-126); ANION GAP 11.7 MEQ/L (5-15); BLOOD UREA NITROGEN 11 mg/dL (9-20); CHLORIDE 106 mmol/L (98-107); Calcium 9.2 mg/dL (8.4-10.2); Carbon Dioxide 24 mmol/L (22-30); Creatinine 1 0.86 mg/dL (0.66-1.25); EST GLOMERULAR FILTRATION RATE > 60.0 ML/MIN; Glucose 111 mg/dL (74-106); MAGNESIUM 1.8 mg/dL (1.6-2.3); NT PRO BNP 147 pg/mL (0-900); Potassium 3.7 mmol/L (3.5-5.1); SGOT/AST 22 U/L (17-59); SGPT/ALT 18 U/L (0-50); SODIUM 138 mmol/L (137-145)
[2021-03-03] MEDS ORDERED: Catapres 0.1 MG PO ONE ×2 (19:08→19:40)
[2021-03-03] MEDS ORDERED: Catapres 0.1 MG ONE ×2 (19:12→19:54)
--- NOTE | 2021-03-03 19:18 | XRAY ---
Indication: Headache. Hypertension. Multiple contiguous axial images obtained through the head without contrast. Comparison: None Age-appropriate global atrophy and mild periventricular degenerative micro-ischemia bilaterally. No acute intracranial hemorrhage, abnormal extra-axial fluid collection, or mass effect. Fourth ventricle is midline without hydrocephalus. Bony calvarium intact. Visualized paranasal sinuses and mastoid air cells are clear. Impression: Normal aging brain. No acute intracranial abnormalities.
[2021-03-03 19:39] VITALS: O2SAT 98
[2021-03-03 20:24] VITALS: BP 169/94; PULSE 66
== END 2021-03-03 20:33 | disposition home or self-care (01) ==
LOC: ED 17:48
DX: I16.0 Hypertensive urgency (principal); R51.9 Headache, unspecified; E11.9 Type 2 diabetes mellitus without complications; K21.9 Gastro-esophageal reflux disease without esophagitis; E78.5 Hyperlipidemia, unspecified; I25.10 Atherosclerotic heart disease of native coronary artery without angina pectoris; I25.2 Old myocardial infarction; Z79.01 Long term (current) use of anticoagulants; Z20.822 Contact with and (suspected) exposure to COVID-19
CPT/HCPCS: 36000; 36415; 70450; 80053; 83735; 83880; 84484; 85025; 93005; 93041; 94760; 96374; 99284; 99291; A9270-GY